=== PATIENT | female | born 1940 | race Caucasian/White ===

== ENCOUNTER → 2018-06-08 | Outpatient (CLI) | payer MEDICARE ==
[~2018-06-08] MED LIST: ACYCLOVIR200 MG PO; ACYCLOVIR400 MG PO; ASPIR 8181 MG PO; ASPIR-LOW81 MG PO; BENTYL10 MG PO; CLOPIDOGREL75 MG PO; CO Q-10200 MG PO; DITROPAN XL10 MG PO; FEXOFENADINE H180 MG PO; FLUOXETINE HCL20 MG PO; GABAPENTIN100 MG PO; GABAPENTIN400 MG PO; GLUCOPHAGE500 MG PO; HCTZ PO; HYDRALAZINE HCL25 MG PO; HYDREA500 MG PO; HYDROXYUREA500 MG PO; LEVEMIR100 UNIT/1 INJ; LEVOTHYROXINE75 MCG PO; LEVOXYL25 MCG PO; LEVOXYL50 MCG PO; LOPRESSOR25 MG PO; LOSARTAN POTAS100 MG PO; LOSARTAN-HCTZ1 EAC2 PO; LOVASTATIN40 MG PO; METFORMIN HCL500 MG PO; METOPROLOL SUCC50 MG PO; MINOCYCLINE HCL50 MG PO; NIFEDICAL XL60 MG PO; OMEPRAZOLE20 M1 PO; OMEPRAZOLE20 MG PO; PLAVIX75 MG PO; RESTORIL15 MG PO; SIMVASTATIN20 MG PO; TYLENOL WITH C1 EACH PO; WELLBUTRIN75 MG PO
--- NOTE | 2018-06-14 08:25 | Diagnostic Imaging Report ---
#[id number] - MGSCRBIL #BILATERAL DIGITAL SCREENING MAMMOGRAM WITH CAD: 06/08/2018 Comparison is made to exam dated: 06/30/2015 mammogram - [facility]. Current study contains 4 films. There are scattered fibroglandular elements in both breasts. Current study was also evaluated with a Computer Aided Detection (CAD) system. There are benign vascular calcifications and calcifications in both breasts. There also are benign lymph nodes in the left breast. Additionally there are post operative findings in the left breast with a scar marker present. There is a left chest wall cardiac device. No significant masses, calcifications, or other findings are seen in either breast. There has been no significant interval change. IMPRESSION: BENIGN There is no mammographic evidence of malignancy. A 1 year screening mammogram is recommended. The patient will be notified by letter of the results. Chivo Nuno Jr., D.O. cw/:06/13/2018 16:18:55 Manager Lab: Lesa DUVALL(Sandrine)(M), [facility] letter sent: Compared to Prior B9 Mammogram BI-RADS: 2 Benign
== END ==
LOC: MERGE 15:27 → MAMMO 15:27
PROVIDERS: ATTEND Family Medicine
DX: Z12.31 Encounter for screening mammogram for malignant neoplasm of breast (principal); J44.1 Chronic obstructive pulmonary disease with (acute) exacerbation; M17.11 Unilateral primary osteoarthritis, right knee
CPT/HCPCS: 77067

== ENCOUNTER → 2018-08-31 | Outpatient (CLI) | payer MEDICARE | LOC: RAD 14:22 | PROVIDERS: ATTEND Family Medicine | DX: R60.0 Localized edema (principal) | CPT/HCPCS: 93971 ==